=== PATIENT | female | born 1985 ===

== ENCOUNTER 2019-06-23 08:25 | Outpatient (CLI) | payer OTHER ==
--- NOTE | 2019-06-23 11:11 | ULT ---
PELVIC ULTRASOUND: HISTORY: Abnormal bleeding. FINDINGS: Rela-time imaging of the pelvis is obtained both transabdominally as well as with an endovaginal appr [facility]. This shows a uterus measuring 5.2 x 5.6 x 7.8 cm. Endometrium is in the 5 mm range. Uterus is retroverted making it more difficult to assess, but there are some areas of altered echogenicity whi ch are suggestive of fibroids. They are somewhat ill-defined, therefore difficult to measure, althou gh the largest is in the 2.6 cm range. The right and left adnexa are normal in appearance. DOPPLER EVALUATION WITH SPECTRAL ANALYSIS: Normal flow is shown to the adnexal region. IMPRESSION: Retroverted uterus which makes it more difficult to assess. There are some ill-defined areas of alte red echogenicity in the fundus region which appear to represent small fibroids. POS: [facility]
== END 2019-06-23 08:26 | disposition home or self-care (01) ==
LOC: BICULT 08:25
PROVIDERS: ATTEND Family Medicine
DX: D25.9 Leiomyoma of uterus, unspecified (principal); N93.9 Abnormal uterine and vaginal bleeding, unspecified; N85.4 Malposition of uterus
CPT/HCPCS: 76856